=== PATIENT | female | born 1935 | race Caucasian/White ===

== ENCOUNTER 2016-11-21 10:06 | Emergency (ER) | payer OTHER ==
[~2016-11-21] VITALS: Ht 152.4 cm; Wt 74.8 kg
[2016-11-21 10:09] VITALS: BP 147/96; PULSE 84; RESP 16; TEMP 98.7; O2SAT 99
[2016-11-21] MEDS ORDERED: NACL 0.9% 1,000 ML IV ONE (10:12)
--- NOTE | 2016-11-21 10:12 | NUR ---
AMBULTED TO BED
--- NOTE | 2016-11-21 10:12 | NUR ---
Pt to ER bed 05. Pt report received from FRAN Orozco. Pt c/o Right flank pain radiating to RUQ abdomen x 2 weeks, worse today. Pt states that she has been passing gas and has been constipated. No abd pain per palpation. Denies N/V. Family at bedside.
[2016-11-21] MEDS ORDERED: ONDANSETRON HCL 4 MG/2 ML VIAL IVP ONE (10:15)
[2016-11-21] MEDS ORDERED: KETOROLAC TROMETHAMINE 30 MG VIAL IVP ONE (10:15)
--- NOTE | 2016-11-21 10:20 | NUR ---
Dr. Cabello at bedside to assess pt.
--- NOTE | 2016-11-21 10:25 | NUR ---
Pt to x-ray.
--- NOTE | 2016-11-21 10:35 | NUR ---
Pt returns from x-ray.
--- NOTE | 2016-11-21 10:38 | NUR ---
# 20 gauge angiocath placed to RAC. Use of asceptic technique. Opsite placed over site. Blood return noted. Blood for lab drawn from site. Flushed with 10 cc of normal saline. No evidence of infiltration noted. Patient tolerated well.
[2016-11-21 10:57] LABS: BILIRUBIN,URINE NEGATIVE (NEGATIVE); BLOOD, URINE NEGATIVE (NEGATIVE); CLARITY/URINE CLEAR (CLEAR); COLOR,URINE YELLOW (YELLOW); GLUCOSE,URINE 2+ (NEGATIVE); KETONES,URINE NEGATIVE (NEGATIVE); LEUKOCYTE ESTERASE ,URINE NEGATIVE (NEGATIVE); NITRITE, URINE NEGATIVE (NEGATIVE); PROTEIN URINE TRACE (NEGATIVE); UROBILINOGEN,URINE 0.2 (0.2-1.0)
[2016-11-21 10:58] LABS: BASOPHILS % (AUTO) 0.4 % (0.0-2.0); EOSINOPHILS # (AUTO) 0.4 K/uL (0.0-0.4); EOSINOPHILS % (AUTO) 5.9 % (0.0-4.0); HEMATOCRIT 35.5 % (36-48); HEMOGLOBIN 12.4 g/dL (12.0-16.0); LYMPHOCYTES # (AUTO) 2.1 K/uL (1.0-5.5); LYMPHOCYTES % (AUTO) 33.9 % (20.5-51.5); MEAN CORPUSCULAR HEMOGLOBIN 31 pg (27-31); MEAN CORPUSCULAR HGB CONC 35 % (32-36); MEAN CORPUSCULAR VOLUME 88 fL (79.0-98.0); MONOCYTES # (AUTO) 0.4 K/uL (0.0-1.0); MONOCYTES % (AUTO) 5.6 % (1.7-9.3); NEUTROPHILS # (AUTO) 3.3 K/uL (1.8-7.7); NEUTROPHILS % (AUTO) 54.2 % (40.0-70.0); PLATELET COUNT (AUTO) 203 K/uL (130-430); RED BLOOD CELL COUNT(AUTO) 4.02 MIL/uL (4.2-6.2); RED CELL DISTRIBUTION WIDTH 13.6 % (9.0-15.0); WHITE BLOOD COUNT (AUTO) 6.3 K/uL (4.8-10.8)
[2016-11-21 11:10] LABS: ANION GAP 7 (5-15); CALCIUM 9.1 mg/dL (8.4-11.0); CHLORIDE 99 mmol/L (98-107); CREATININE 0.95 mg/dL (0.55-1.30); GLUCOSE 325 mg/dL (70-99); POTASSIUM 3.9 mmol/L (3.5-5.1); SODIUM SERUM 133 mmol/L (136-145); UREA NITROGEN, BLOOD 16 mg/dL (8-21)
[2016-11-21 11:11] LABS: BACTERIA,URINE FEW /HPF (None Seen); MUCUS,URINE 1+ /LPF (None Seen); RBC,URINE 0-3 /HPF (0-3); WBC,URINE 0-3 /HPF (0-3)
--- NOTE | 2016-11-21 11:18 | NUR ---
[place] of care received,pt presented to ER for flank pain radiating to abdomen, pt on stable condition, states pain improving at this time, skin pink and warm, cap refill <3, VSS.
[2016-11-21 11:26] LABS: ALANINE AMINOTRANSFERASE 26 U/L (12-78); ALBUMIN 3.8 g/dL (3.4-4.8); AMYLASE 23 U/L (0-100); ASPARTATE AMINOTRANSFERASE 18 U/L (10-37); LIPASE 110 U/L (73-393); TOTAL BILIRUBIN 0.3 mg/dL (0.0-1.0); TOTAL PROTEIN, SERUM 7.8 g/dL (6.4-8.3)
[2016-11-21 11:43] VITALS: BP 142/96; PULSE 84; RESP 16; TEMP 98.7; O2SAT 99
--- NOTE | 2016-11-21 11:43 | NUR ---
Patient given written and verbal discharge instructions and verbalizes understanding. ER MD discussed with patient the results and treatment provided.Patient in stable condition. ID arm band removed. IV catheter removed intact and dressing applied, no active bleeding. Rx of Lactulose given. Patient educated on pain management and to follow up with PMD. Pain Scale 0/10. Opportunity for questions provided and answered.
== END 2016-11-21 11:43 | disposition home or self-care (01) ==
LOC: SED 10:06
DX: K59.00 Constipation, unspecified (principal); E11.8 Type 2 diabetes mellitus with unspecified complications; I10 Essential (primary) hypertension; E78.5 Hyperlipidemia, unspecified
CPT/HCPCS: 36415; 74176; 80053; 81000; 82150; 83605; 83690; 85025; 87040; 96361; 96374; 96375; 99285; J1885; J2405; J7030

== ENCOUNTER 2020-02-20 12:45 | Emergency (ER) | payer OTHER, MEDICAID ==
[~2020-02-20] VITALS: Ht 152.4 cm; Wt 74.8 kg
--- NOTE | 2020-02-20 12:45 | NUR ---
PATIENT TO ER #[address] ON BOW [place], SAO2 AND ABP; BLOOD GLUCOSE 365
[2020-02-20 12:51] VITALS: BP_SYST 161
--- NOTE | 2020-02-20 13:09 | NUR ---
DR NOLEN IN TO ASSESS. PT CALM, ALERT, RESP UNLABORED, NAMIBIAN SPEAKING
--- NOTE | 2020-02-20 13:11 | NUR ---
LUISA TO ASSUME CARE. PT CALM, ALERT, RESP UNLABORED, SKIN WARM AND DRY. C/O ELEVATED BS AND BP. UPON ARRIVAL, ALERT, CALM, RESP UNLABORED, DENIES CP/SOB. COMMUNICATES CLEARLY IN FULL COMPLETE SENTENCES, BENGALI SPEAKING
[2020-02-20] MEDS ORDERED: LOSA100T23 PO (13:21)
[2020-02-20] MEDS ORDERED: GLIP5TAB26 PO (13:21)
[2020-02-20] MEDS ORDERED: AMLO10TA88 PO (13:21)
[2020-02-20] MEDS ORDERED: ROSU40TA23 PO (13:21)
[2020-02-20] MEDS ORDERED: SITA100T11 PO (13:21)
[2020-02-20] MEDS ORDERED: ATEN-168 PO (13:21)
[2020-02-20] MEDS ORDERED: METF-379 PO (13:21)
[2020-02-20] MEDS ORDERED: NACL 0.9% 1,000 ML IV ONE (13:30)
[2020-02-20] MEDS ORDERED: INSULIN REGULAR, HUMAN 10 UNITS/0.1 ML INJ IVP ONE (13:30)
--- NOTE | 2020-02-20 14:08 | NUR ---
IV HL 20 GUAGE RT AC. LABS SENT, IV HYDRATION W/NS NO DISTRESS, DENIES PAIN. RESP UNLABORED
[2020-02-20 14:12] LABS: BASOPHILS % (AUTO) 0.4 % (0.0-2.0); EOSINOPHILS # (AUTO) 0.1 K/uL (0.0-0.4); EOSINOPHILS % (AUTO) 1.4 % (0.0-4.0); HEMATOCRIT 36.9 % (36-48); HEMOGLOBIN 12.1 g/dL (12.0-16.0); LYMPHOCYTES # (AUTO) 0.9 K/uL (1.0-5.5); LYMPHOCYTES % (AUTO) 12.4 % (20.5-51.5); MEAN CORPUSCULAR HEMOGLOBIN 30 pg (27-31); MEAN CORPUSCULAR HGB CONC 33 % (32-36); MEAN CORPUSCULAR VOLUME 91 fL (79.0-98.0); MONOCYTES # (AUTO) 0.4 K/uL (0.0-1.0); MONOCYTES % (AUTO) 5.1 % (1.7-9.3); NEUTROPHILS # (AUTO) 5.6 K/uL (1.8-7.7); NEUTROPHILS % (AUTO) 80.7 % (40.0-70.0); PLATELET COUNT (AUTO) 168 K/uL (130-430); RED BLOOD CELL COUNT(AUTO) 4.04 MIL/uL (4.2-6.2); RED CELL DISTRIBUTION WIDTH 14.2 % (9.0-15.0); WHITE BLOOD COUNT (AUTO) 6.9 K/uL (4.8-10.8)
[2020-02-20 14:13] LABS: BILIRUBIN,URINE NEGATIVE (NEGATIVE); BLOOD, URINE NEGATIVE (NEGATIVE); CLARITY/URINE CLEAR (CLEAR); COLOR,URINE YELLOW (YELLOW); GLUCOSE,URINE 3+ (NEGATIVE); KETONES,URINE NEGATIVE (NEGATIVE); LEUKOCYTE ESTERASE ,URINE NEGATIVE (NEGATIVE); NITRITE, URINE NEGATIVE (NEGATIVE); PH,URINE 6.5 (5.0-8.0); PROTEIN URINE NEGATIVE (NEGATIVE); UROBILINOGEN,URINE 0.2 (0.2-1.0)
[2020-02-20 14:23] LABS: BACTERIA,URINE FEW /HPF (None Seen); RBC,URINE 0-3 /HPF (0-3); WBC,URINE 0-3 /HPF (0-3)
[2020-02-20 14:25] LABS: ANION GAP 8 (5-15); CALCIUM 8.8 mg/dL (8.4-11.0); CHLORIDE 97 mmol/L (98-107); GLUCOSE 385 mg/dL (70-99); POTASSIUM 4.4 mmol/L (3.5-5.1); SODIUM SERUM 131 mmol/L (136-145); UREA NITROGEN, BLOOD 21 mg/dL (8-21)
[2020-02-20 14:31] LABS: ALANINE AMINOTRANSFERASE 28 U/L (12-78); ALBUMIN 3.6 g/dL (3.4-4.8); ASPARTATE AMINOTRANSFERASE 22 U/L (10-37); TOTAL BILIRUBIN 0.4 mg/dL (0.0-1.0)
--- NOTE | 2020-02-20 14:55 | NUR ---
[id number]
[2020-02-20 15:58] VITALS: BP_SYST 148
--- NOTE | 2020-02-20 16:00 | NUR ---
Patient given written and verbal discharge instructions and verbalizes understanding. ER MD discussed with patient the results and treatment provided. Patient in stable condition. ID arm band removed. IV catheter removed intact and dressing applied, no active bleeding. Patient educated on pain management and to follow up with PMD. Pain Scale . Opportunity for questions provided and answered. Medication side effect fact sheet provided.
== END 2020-02-20 16:00 | disposition home or self-care (01) ==
LOC: SED 12:45
DX: E11.65 Type 2 diabetes mellitus with hyperglycemia (principal); I10 Essential (primary) hypertension; E78.5 Hyperlipidemia, unspecified; Z79.899 Other long term (current) drug therapy
CPT/HCPCS: 36415; 80053; 81000; 82962; 85025; 96361; 96374; 99285; J1815; J7030

== ENCOUNTER 2021-02-13 12:45 | Emergency (ER) | payer OTHER, MEDICAID, SELFPAY ==
[~2021-02-13] VITALS: Ht 162.6 cm; Wt 78.0 kg
[~2021-02-13 12:45] MED LIST: AMLO10TA88 PO; ATEN-168 PO; GLIP5TAB26 PO; LOSA100T23 PO; METF-379 PO; ROSU40TA23 PO; SITA100T11 PO
[2021-02-13 12:59] VITALS: BP_SYST 146
[2021-02-13 14:56] LABS: BASOPHILS % (AUTO) 0.5 % (0.0-2.0); EOSINOPHILS # (AUTO) 0.1 K/uL (0.0-0.4); EOSINOPHILS % (AUTO) 1.2 % (0.0-4.0); HEMATOCRIT 36.8 % (36-48); LYMPHOCYTES # (AUTO) 1.1 K/uL (1.0-5.5); LYMPHOCYTES % (AUTO) 17.9 % (20.5-51.5); MEAN CORPUSCULAR HEMOGLOBIN 30 pg (27-31); MEAN CORPUSCULAR HGB CONC 33 % (32-36); MEAN CORPUSCULAR VOLUME 91 fL (79.0-98.0); MONOCYTES # (AUTO) 0.3 K/uL (0.0-1.0); MONOCYTES % (AUTO) 5.2 % (1.7-9.3); NEUTROPHILS # (AUTO) 4.8 K/uL (1.8-7.7); NEUTROPHILS % (AUTO) 75.2 % (40.0-70.0); PLATELET COUNT (AUTO) 166 K/uL (130-430); RED BLOOD CELL COUNT(AUTO) 4.03 MIL/uL (4.2-6.2); RED CELL DISTRIBUTION WIDTH 14.3 % (9.0-15.0); WHITE BLOOD COUNT (AUTO) 6.4 K/uL (4.8-10.8)
[2021-02-13 14:56] LABS: BILIRUBIN,URINE NEGATIVE (NEGATIVE); BLOOD, URINE NEGATIVE (NEGATIVE); CLARITY/URINE CLEAR (CLEAR); COLOR,URINE YELLOW (YELLOW); GLUCOSE,URINE 3+ (NEGATIVE); KETONES,URINE NEGATIVE (NEGATIVE); LEUKOCYTE ESTERASE ,URINE NEGATIVE (NEGATIVE); NITRITE, URINE NEGATIVE (NEGATIVE); PROTEIN URINE NEGATIVE (NEGATIVE); UROBILINOGEN,URINE 0.2 (0.2-1.0)
[2021-02-13 15:13] LABS: ANION GAP 13 (5-15); CALCIUM 8.6 mg/dL (8.4-11.0); CHLORIDE 98 mmol/L (98-107); CREATININE 1.11 mg/dL (0.55-1.30); POTASSIUM 4.5 mmol/L (3.5-5.1); SODIUM SERUM 132 mmol/L (136-145); UREA NITROGEN, BLOOD 26 mg/dL (8-21)
[2021-02-13 15:18] LABS: ALANINE AMINOTRANSFERASE 18 U/L (12-78); ALBUMIN 3.4 g/dL (3.4-4.8); ASPARTATE AMINOTRANSFERASE 8 U/L (10-37); GLUCOSE 505 mg/dL (70-99); TOTAL BILIRUBIN 0.2 mg/dL (0.0-1.0)
[2021-02-13 15:25] LABS: ACETONE, SERUM NEGATIVE (NEGATIVE)
[2021-02-13] MEDS ORDERED: INSULIN REGULAR, HUMAN 10 UNITS/0.1 ML INJ IVP ONE (15:30)
[2021-02-13] MEDS ORDERED: NACL 0.9% 1,000 ML IV ONE (15:30)
[2021-02-13 16:46] VITALS: BP_SYST 135
== END 2021-02-13 16:47 | disposition home or self-care (01) ==
LOC: SED 12:45
DX: E11.65 Type 2 diabetes mellitus with hyperglycemia (principal); I10 Essential (primary) hypertension; Z79.899 Other long term (current) drug therapy; Z20.822 Contact with and (suspected) exposure to COVID-19
CPT/HCPCS: 36415; 80053; 81003; 82009; 82962; 83605; 85025; 87426; 93005; 96361; 96374; 99284; J7030; J1815